=== PATIENT | female | born 1965 | race Caucasian/White ===

== ENCOUNTER → 2018-07-14 | Outpatient (CLI) | payer BC ==
--- NOTE | 2018-07-14 17:20 | BD ---
EXAMINATION TYPE: Axial Bone Density DATE OF EXAM: 07/14/2018 COMPARISON: 12/16/2015 CLINICAL HISTORY: 53 year-old female known osteopenia Height: 59.5 IN Weight: 172 LBS FRAX RISK QUESTIONS: Secondary Osteoporosis: 3. Menopause before 45: TOTAL HYST AGE 40 RISK FACTORS HISTORY OF: Active: YES Diet low in dairy products/other sources of calcium: YES Postmenopausal woman: AGE 40 Take estrogen and/or progesterone medications: NOT NOW How long: ESTROGEN AGE 41-45 MEDICATIONS: Additional Medications: VIT D, 50+ DAILY VITAMIN, VIT B12, OMEPRAZOLE, EXAM MEASUREMENTS: Bone mineral densitometry was performed using the [employer] System. Bone mineral density as measured about the Lumbar spine is: ----- L1-L4(G/cm2): 1.104 T Score Values are as follows: ----- L2: 0.0 ----- L3: -0.2 ----- L4: -1.7 ----- L1-L4: -0.6 Bone mineral density has: Decreased -0.8% since study of: 12/16/2015 Bone mineral density about the R hip (g/cm2): 0.867 Bone mineral density about the L hip (g/cm2): 0.841 T Score values are as follows: -----R Neck: -1.2 -----L Neck: -1.4 -----R Total: -0.6 -----L Total: -0.7 Bone mineral density has: Decreased -2.4% since study of: 12/16/2015 IMPRESSION: Osteopenia (T Score between -2.5 and -1). There is slightly increased risk of fracture and the patient may be considered for treatment. Re-Screen 2-5 years. NOTE: T-SCORE=SD OF THE YOUNG ADULT MEAN.
--- NOTE | 2018-07-16 11:40 | MM ---
Reason for exam: screening (asymptomatic). Last mammogram was performed 2 years and 7 months ago. History: Patient is postmenopausal and had first child at age 32. Took estrogen for 4 years 7 months beginning at age 40. Physical Findings: A clinical breast exam by your physician is recommended on an annual basis and results should be correlated with mammographic findings. MG Screening Mammo w CAD Bilateral CC and MLO view(s) were taken. Prior study comparison: December 16, 2015, bilateral MG screening mammo w CAD. February 18, 2014, bilateral MG screening mammo w CAD. The breast tissue is heterogeneously dense. This may lower the sensitivity of mammography. No significant changes when compared with prior studies. ASSESSMENT: Negative, BI-RAD 1 RECOMMENDATION: Routine screening mammogram of both breasts in 1 year.
== END ==
LOC: RADMAMWWP 08:51
PROVIDERS: ATTEND Obstetrics & Gynecology
DX: Z12.31 Encounter for screening mammogram for malignant neoplasm of breast (principal); M85.9 Disorder of bone density and structure, unspecified; Z13.820 Encounter for screening for osteoporosis
CPT/HCPCS: 77067; 77080

== ENCOUNTER → 2020-08-16 | Outpatient (CLI) | payer BC ==
[2020-08-16 12:15] LABS: HCT 41.1 % (34.0-46.0); MCH 31.5 pg (25.0-35.0); MCHC 34.1 g/dL (31.0-37.0); MCV 92.3 fL (80.0-100.0); Mean Platelet Volume 8.5; Platelet Count 205 k/uL (150-450); RBC 4.46 m/uL (3.80-5.40); RDW 12.9 % (11.5-15.5); WBC 9.3 k/uL (3.8-10.6)
[2020-08-16 12:39] LABS: ALT 20 U/L (4-34); AST 35 U/L (14-36); African American GFR (CKD) >90 (>60 ml/min/1.73 sqM); Albumin 4.4 g/dL (3.5-5.0); Alkaline Phosphatase 115 U/L (38-126); Anion Gap 4 mmol/L; Blood Urea Nitrogen 17 mg/dL (7-17); Calcium 9.5 mg/dL (8.4-10.2); Carbon Dioxide 31 mmol/L (22-30); Chloride 108 mmol/L (98-107); Glucose 94 mg/dL (74-99); Non-African American GFR(CKD) >90 (>60 ml/min/1.73 sqM); Potassium 4.4 mmol/L (3.5-5.1); Sodium 143 mmol/L (137-145); Total Bilirubin 0.4 mg/dL (0.2-1.3); Total Protein 6.6 g/dL (6.3-8.2)
[2020-08-16 12:43] LABS: INR 0.9 (<1.2); Prothrombin Time 10.2 sec (9.0-12.0)
== END | disposition home or self-care (01) ==
LOC: LABPAT 11:04
PROVIDERS: ATTEND Orthopaedic Surgery
DX: Z01.812 Encounter for preprocedural laboratory examination (principal)
CPT/HCPCS: 80053; 85027; 85610; 87070

== ENCOUNTER 2020-08-23 09:18 | Observation (INO) | payer BC ==
[2020-08-22 08:37] VITALS: BMI 32.1
--- NOTE | 2020-08-22 09:43 | HP ---
HISTORY AND PHYSICAL CHIEF COMPLAINT: Left knee pain. 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 She is having pain with weightbearing activities and at night. She has tried medications in addition to injections with only partial temporary relief. She notes her pain significantly limits her. PAST MEDICAL HISTORY: Significant for reflux disease and arthritis. PAST SURGICAL HISTORY: Significant for right knee arthroscopy and left ear surgery. CURRENT ALLERGIES: Omeprazole. ALLERGIES: CEFACLOR. FAMILY HISTORY: Significant for cancer. SOCIAL HISTORY: Negative for current tobacco or alcohol use. REVIEW OF SYSTEMS: Sixteen-point review of systems otherwise reviewed and is noncontributory. PHYSICAL EXAMINATION: On examination, the patient is approximately 5 feet tall, 168 pounds of endomorphic habitus. HEENT exam is nonfocal. Neck is supple. She has painless passive motion of her left hip. Straight leg raise is negative. Active motion left knee is -10 to 115 degrees of flexion. She has a moderate effusion. She is tender about the medial and lateral joint line. Collaterals are stable, Arsh is negative, Javon's is equivocal. Her distal neurovascular exam appears intact in the left lower extremity. Weightbearing notch, lateral Merchant views of the left knee obtained in the office show severe tricompartmental osteoarthrosis with [id number] changes and subchondral sclerosis. IMPRESSION: Left knee severe [id number]. RECOMMENDATIONS: I talked to the patient at length regarding her condition and treatment options. At this point, she is quite limited because of pain secondary to her osteoarthrosis despite conservative measures. After thorough discussion, she opts to proceed with surgery. We will plan to proceed with left total knee arthroplasty. Risks and benefits were discussed at length in layman's terms. We will institute DVT prophylaxis postoperatively. MMODL / IJN: [id number] /
[~2020-08-23 09:18] MED LIST: ACETAMINOPHEN TAB 500 MG TAB PO PRN; CLINDAMYCIN 900 MG in DEXTROSE 5% IN WATER 50 ML IVPB PRN; DEXAMETHASONE SOD PHOSPHATE 4 MG/ML 1 ML VIAL IV ONE; LIDOCAINE 1% (10MG/ML) FOR IV START INTRADERMA PRN; MELOXICAM 7.5 MG TAB PO PRN; MIDAZOLAM 2 MG/2 ML VIAL IV PRN; TRANEXAMIC ACID 1,000 MG in SODIUM CHLORIDE 0.9% 100 ML IVPB PRN
[2020-08-23] MEDS: LACTATED RINGERS 1,000 ML IV SCH (10:03)
[2020-08-23] MEDS: ONDANSETRON 4 MG/2 ML VIAL IVP ONE ×2 (10:09→14:26)
[2020-08-23] MEDS ORDERED: TRANEXAMIC ACID 1,000 MG/10 ML VIAL ONE (11:31)
[2020-08-23] MEDS ORDERED: SODIUM CHLORIDE 0.9% 100 ML BAG ONE (11:31)
[2020-08-23] MEDS ORDERED: ROPIVACAINE 5 MG/ML 30 ML VIAL ONE (11:31)
[2020-08-23] MEDS ORDERED: MIDAZOLAM 2 MG/2 ML VIAL ONE (11:31)
[2020-08-23] MEDS ORDERED: fentaNYL (PF) 50 MCG/ML 2 ML AMP ONE (11:31)
[2020-08-23] MEDS ORDERED: ROPIVACAINE 0.2%-NS ON-Q PUMP 1,090 MG, EMPTY PAIN BALL 1 EACH MISCELLANE PRN (12:55)
[2020-08-23] MEDS ORDERED: NALOXONE 0.4 MG/ML 1 ML VIAL IV PRN (13:08)
--- NOTE | 2020-08-23 13:10 | P.ANPRN ---
Procedure Note - Anesthesia - Nerve Block Performed Left Adductor Canal Time Out Performed: Yes (:19) Date of Procedure: 08/23/20 Procedure Start Time: Procedure Stop Time: : Location of Patient: PreOp Indication: Acute Post-Operative Pain, Requested by Surgeon (Dr Reinoso) Sedation Type: Sedate with meaningful contact maintained Preparation: Sterile Prep, Sterile Dressing Position: Supine Catheter: Indwelling Needle Types: Pajunk Needle Gauge: 21 Ultrasound used to visualize needle placement: Yes Ultrasound used to observe medication spread: Yes Injectate: 0.5% Ropivacaine (see comment for volume) (15cc) Blood Aspirated: No Pain Paresthesia on Injection Noted: No Resistance on Injection: Normal Image Stored and Saved: Yes Events: Uneventful and Well Tolerated
--- NOTE | 2020-08-23 13:12 | P.ANPRN ---
Procedure Note - Anesthesia - Nerve Block Performed Left iPack Time Out Performed: Yes Date of Procedure: 08/23/20 Procedure Start Time: 10:34 Procedure Stop Time: 10:47 Location of Patient: PreOp Indication: Acute Post-Operative Pain, Requested by Surgeon (Dr Reinoso) Sedation Type: Sedate with meaningful contact maintained Preparation: Sterile Prep Position: Supine Catheter: None Needle Types: Pajunk Needle Gauge: 21 Ultrasound used to visualize needle placement: Yes Ultrasound used to observe medication spread: Yes Injectate: 0.5% Ropivacaine (see comment for volume) (15cc) Blood Aspirated: No Pain Paresthesia on Injection Noted: No Resistance on Injection: Normal Image Stored and Saved: Yes Events: Uneventful and Well Tolerated
[2020-08-23] MEDS ORDERED: PANTOPRAZOLE 40 MG TABLET PO PRN (13:21)
[2020-08-23] MEDS ORDERED: ALBUTEROL HFA INHALER INHALATION PRN ×2 (13:21→13:26)
[2020-08-23] MEDS ORDERED: ALPRAZolam 0.25 MG TAB PO PRN (13:21)
[2020-08-23] MEDS ORDERED: ALBUTEROL NEBULIZED 2.5 MG/3 ML INHALATION PRN (13:26)
--- NOTE | 2020-08-23 13:35 | P.OP ---
Date of Procedure: 08/23/20 Preoperative Diagnosis: Left knee severe tricompartmental osteoarthrosis Postoperative Diagnosis: Same Procedure(s) Performed: Left total knee arthroplastycementedcruciate retaining Implants: Depuy Attune size 5 narrows cemented femoral component, size 4 cemented tibial component, 9 mm articular surface, 35 mm cemented patellar component. This is a cruciate retaining implant. Anesthesia: regional, spinal Surgeon: Tolu Reinoso Information Technology Advisor #1: Saji Glass Estimated Blood Loss (ml): 50 Pathology: other (Bone fragments) Condition: stable Disposition: PACU Indications for Procedure: The patient's a 55-year-old female presents was severe left knee pain secondary to osteoarthrosis despite conservative measures. A discussion of the risks and benefits of operative intervention versus continued conservative measures was made with the patient. She opted to proceed with surgery. Operative risks to include infection, neurovascular injury, development of blood clots, possible component loosening, possible component failure need for subsequent procedures was discussed. Informed consent was obtained. Operative Findings: As below Description of Procedure: The patient was brought to the operating room, and after induction of spinal anesthesia the left lower extremity was prepped and draped in a normal fashion. The tourniquet was inflated to 270 mmHg. A longitudinal incision extending 3 finger breaths above the superior pole of the patella extending to the medial aspect the tibial tubercle was then made. The skin and subcutaneous tissues were divided sharply. Electrocautery was used for hemostasis. A medial parapatellar arthrotomy was then performed. The medial soft tissues to include the superficial and deep portions of the medial collateral ligament as well as the medial hamstring tendons were elevated subperiosteally. The proximal medial tibia osteophytes were carefully removed. The patella was everted. The knee was flexed. A portion of the retropatellar fat pad was excised sharply. The anterior cruciate ligament was sacrificed. A starting hole was made in the distal femur 1 cm anterior to the posterior cruciate origin. An intramedullary femoral guide was gently inserted planning on 5 valgus distal cut with 9 mm distal resection. The cutting block was pinned in place. The distal cut was then made. The posterior referencing sizing guide was utilized. 3 of external rotation was built into the system and verified off the trans- epicondylar axis and the posterior condyles. I felt size 5 narrow was most appropriate. The cutting block was pinned in place. The anterior, posterior, and chamfer cuts were then made. The bone fragments were removed. A sulcus cut was then made with the appropriate guide. The trial size 5 narrow femoral component was then placed and was fully seated. There was good anterior to posterior and medial to lateral fit. The distal peg holes were then drilled. The trial component was then removed. Attention was then paid towards preparing the proximal tibia. An extra medullary guide was utilized in line with the tibial shaft and second metatarsal distally. A 7 posterior slope was planned. I planned on 2 mm resection from the medial compartment. The cutting block was pinned in place. The proximal tibial cut was then made. The bone was removed in one fragment. The remnants of the medial and lateral menisci were excised the capsule junction with electrocautery. The tibia sized most appropriately at size 4. The posterior osteophytes off the distal femur were carefully removed with a curved osteotome. The trial tibial and femoral components were placed along with a 9 millimeters articular surface. I was able to obtain full flexion and extension with good stability with varus and valgus stress. After several flexion and extension cycles, the tibial rotation was marked with electrocautery in line with the medial one third of the tibial tubercle. Attention was then paid towards preparing the patella. A patella reamer was utilized taking this down to 14 mm of bone stock. A good flush cut was made. The patella sized most appropriately at 35 millimeters. The peg holes were then drilled. The trial component was placed. The knee was taken through a range of motion. I had good patellofemoral tracking with no hands technique. The trial components were then removed. The tibia was prepared in the appropriate rotation with appropriate drill and keel punch. The flexion and extension gaps were checked and felt to be symmetric. The bony surfaces were prepared with pulsatile lavage and dried. The deep tibial component was then cemented in place and was fully seated. Excess cement was removed. The femoral component was cemented in place and was fully seated. Again excess cement was removed. The trial 9 millimeters surface was then inserted in the knee was put in full extension. The patella component was cemented in place. After the cement had sufficiently hardened, the knee was again taken through a range of motion. Again there was good stability in flexion and extension with varus and valgus stress. The trial articular surface was then removed. The final articular surface was placed and was impacted. Care was taken to avoid any soft tissue interposition. Pulsatile lavage was again utilized. The tourniquet was deflated with approximately 60 minutes total tourniquet time. There was minimal drainage therefore a deep drain was not placed. The medial parapatellar arthrotomy was then closed with #2 Ethibond suture. The subcutaneous tissues were reapproximated interrupted 2-0 Vicryl sutures. The skin was reapproximated with 3-0 subarticular strata fix suture. Skin tape and adhesive was applied. A sterile dressing was applied. The patient was then awoken from sedation and transferred to recovery room in good condition. Blood loss was estimated at 50 milliliters. No complications were incurred. Sponge and needle counts were correct at the end the case. Saji PORTILLO assisted during the major components this case to include exposure, bone resection, and implantation.
[2020-08-23 13:50] VITALS: RESP 16
[2020-08-23] MEDS: HYDROmorphone 0.5 MG/0.5 ML SYRINGE IVP PRN ×2 (14:20→20:00)
--- NOTE | 2020-08-23 14:33 | XR ---
EXAMINATION TYPE: XR knee limited LT DATE OF EXAM: 08/23/2020 COMPARISON: NONE TECHNIQUE: Two views submitted HISTORY: Post op FINDINGS: There is a prosthetic knee in near anatomic alignment. There is soft tissue edema and emphysema. IMPRESSION: 1. Postoperative change. Appears in near-anatomic alignment
[2020-08-23] MEDS: HYDROcodone/APAP 5-325MG 1 EACH TAB PO PRN (15:11)
[2020-08-23] MEDS ORDERED: ONDANSETRON 4 MG/2 ML VIAL IVP PRN (17:27)
[2020-08-23] MEDS: CLINDAMYCIN 900 MG in DEXTROSE 5% IN WATER 50 ML IVPB SCH ×2 (17:36)
--- NOTE | 2020-08-23 21:15 | P.CONS ---
History of Present Illness - Reason for Consult Consult date: 08/23/20 Medical management Requesting physician: Tolu Reinoso - Chief Complaint Post left total knee arthroplasty, had a hernia, severe arthritis - History of Present Illness HISTORY OF PRESENT ILLNESS 55-year-old female one of Dr. ro's patient with past medical history of femoral hernia along with arthritis who had multiple orthopedic procedures such as arthroscopy of both knees in the past also known to have history of severe GERD. Patient developed to have severe advanced arthritis with severe [id number]-zvns of the left knee for the last few years with failure to conservative management specially after riding arthroscopy continue having increased pain and severe limitation. Patient was seen Dr. Reinoso was scheduled for elective total knee arthroplasty. Surgery was done today successfully with no major complication patient was admitted to the floor afterward she still having the pain management system, med reconsultation was started patient will have PTOT GI and DVT prophylaxis protocol. REVIEW OF SYSTEMS Constitutional: No fever, no chills, no night sweats. No weight change. No weakness, fatigue or lethargy. No daytime sleepiness. EENT: No headache. No blurred vision or double vision, no loss of vision. No loss of Hearing, no ringing in the ears, no dizziness. No nasal drainage or congestion. No epistaxis. No sore throat. Lungs: No shortness of breath, cough, no sputum production. No wheezing. Cardiovascular: No chest pain, no lower extremity edema. No palpitations. No paroxysmal nocturnal dyspnea. No orthopnea. No lightheadedness or dizziness. No syncopal episodes. Abdominal: No abdominal pain. No nausea, vomiting. No diarrhea. No constipation. No bloody or tarry stools.. No loss of appetite. Genitourinary: No dysuria, increased frequency, urgency. No urinary retention. Musculoskeletal: No myalgias. No muscle weakness, no gait dysfunction, no frequent falls. No back pain. No neck pain. Integumentary: No wounds, no lesions. No rash or pruritus. No unusual bruising. No change in hair or nails. Slight discomfort and pain in the left knee. Neurologic: No aphasia. No facial droop. No change in mentation. No head injury. No headache. No paralysis. No paresthesia. Psychiatric: No depression. No anxiety. No mood swings. Endocrine: No abnormal blood sugars. No weight change. No excessive sweating or thirst. No cold intolerance. SOCIAL HISTORY She does not smoke, she drink alcohol socially, does not use any marijuana no CP AP or nebulizer management, does not walk with a walker or cane at this point. Patient is and lives with her . FAMILY HISTORY Her father dying his AV from CHF and end-stage renal disease. Mother in her 50s from advanced COPD, patient had 1 brother who is living and well one daughter with no major medical problem. PHYSICAL EXAMINATION Gen: This is a 55-year-old does not look in any respiratory distress. HEENT: Head is atraumatic, normocephalic. Pupils equal, round. Sclerae is anicteric. NECK: Supple. No JVD. No lymphadenopathy. No thyromegaly. LUNGS: Clear to auscultation. No wheezes or rhonchi. No intercostal retractions. HEART: Regular rate and rhythm. No murmur. ABDOMEN: Soft. Bowel sounds are present. No masses. No tenderness. EXTREMITIES: No pedal edema. No calf tenderness. Incision of her left knee looks fine with no hematoma or bleeding no Shruthi with slight tenderness pulses palpable. NEUROLOGICAL: Patient is awake, alert and oriented x3. Cranial nerves 2 through 12 are grossly intact. ASSESSMENT AND PLAN 1 post left total knee arthroplasty: Patient is doing well so far, patient is well controlled, patient is stable hemodynamically, resume home meds, will continue GI, DVT and pulmonary protocol. 2 severe GERD/hiatal hernia: Patient has been on omeprazole 20 mg a day which will be resumed. 3 reactive airway/asthma: Has been doing very well with rescue inhaler with Ventolin HFA on demand. 4 mild anxiety attacks: Has been on Xanax 0.25 mg twice a day as needed. 5 severe arthritis: Patient had multi surgery on both knees right side is doing slightly but better for now. Continue anti-inflammatory agent on as-needed basis. 6 DVT prophylaxis: Patient was started on Xarelto 10 mg daily as for been discharged home will be on aspirin. 7 GI prophylaxis: Continue patient on Protonix. 8 pain and pain management: Patient still on pain management system at this point still on hydrocodone on an as-needed basis. With status: Full code. Dr. Reinoso thank you very much for the consult if I can be any further help to please let me know. Past Medical History Past Medical History: GERD/Reflux Additional Past Medical History / Comment(s): hiatal hernia (no official diagnosis), positive COVID 04/2020 History of Any Multi-Drug Resistant Organisms: None Reported Past Surgical History: Hysterectomy, Orthopedic Surgery, Tonsillectomy Additional Past Surgical History / Comment(s): arthroscopy knee surgeries(2 on right, one on left knee), left mastoidectomy x 2 Past Anesthesia/Blood Transfusion Reactions: No Reported Reaction Past Psychological History: Anxiety Smoking Status: Never smoker Past Alcohol Use History: Occasional Past Drug Use History: None Reported - Past Family History Mother Family Medical History: Cancer Additional Family Medical History / Comment(s): lung Medications and Allergies Home Medications Medication Instructions Recorded Confirmed Type ALPRAZolam [Xanax] 0.25 mg PO DAILY PRN 08/22/20 08/23/20 History Acetaminophen [Tylenol Arthritis] 650 mg PO DIRECTED PRN 08/22/20 08/23/20 History Albuterol Inhaler [Ventolin Hfa 1 puff INHALATION DIRECTED PRN 08/22/20 08/22/20 History Inhaler] Ibuprofen [Motrin Ib] 200 - 600 mg PO Q8H PRN 08/22/20 08/22/20 History Multivitamins, Thera [Multivitamin 1 tab PO DAILY 08/22/20 08/22/20 History (formulary)] Omeprazole 20 mg PO DAILY PRN 08/22/20 08/22/20 History Allergies Allergy/AdvReac Type Severity Reaction Status Date / Time cefaclor [From [facility]] Allergy Rash/Hives Verified 08/23/20 09:46 Physical Exam Vitals: Vital Signs Temp Pulse Pulse Resp BP Pulse Ox 08/23/20 14:30 69 16 130/76 100 08/23/20 14:15 66 16 132/81 95 08/23/20 14:02 57 L 16 124/74 96 08/23/20 13:45 64 16 122/76 96 08/23/20 13:32 97.7 F 70 18 121/78 96 08/23/20 10:35 66 16 125/77 100 08/23/20 10:20 60 16 129/74 100 08/23/20 09:55 97.4 F L 66 17 127/72 97 Intake and Output 08/23/20 08/23/20 08/23/20 06:59 14:59 22:59 Intake Total 356 Output Total 50 Balance 306 Intake: IV 356 Output: Estimated Blood Loss 50 Other: Weight 73.482 kg
[2020-08-24] MEDS: HYDROcodone/APAP 5-325MG 1 EACH TAB PO PRN ×3 (00:10→13:04)
[2020-08-24] MEDS: CLINDAMYCIN 900 MG in DEXTROSE 5% IN WATER 50 ML IVPB SCH ×2 (00:11)
[2020-08-24] MEDS: LACTATED RINGERS 1,000 ML IV SCH (05:47)
[2020-08-24 07:42] VITALS: BP 123/75; PULSE 102; TEMP 98
[2020-08-24] MEDS ORDERED: MULTIVITAMINS, THERA 1 EACH TAB PO SCH (09:00)
[2020-08-24] MEDS ORDERED: RIVAROXABAN 10 MG TAB PO SCH (09:00)
--- NOTE | 2020-08-24 09:54 | P.PN ---
Subjective Progress Note Date: 08/24/20 Principal diagnosis: Status post left total knee arthroplasty Patient evaluated at bedside, she is resting in her hospital chair. She is rather comfortable at this time. She indicated with physical therapy, she did do the stairs were no difficulty. She has no headaches, lightheadedness, chest pain, shortness of breath, nausea vomiting, fever or chills. Objective - Vital Signs Vital signs: Vital Signs Temp 98 F 08/24/20 07:42 Pulse 102 H 08/24/20 07:42 Resp 16 08/24/20 07:42 BP 123/75 08/24/20 07:42 Pulse Ox 96 08/24/20 07:42 Intake & Output 08/23/20 08/24/20 08/24/20 18:59 06:59 18:59 Intake Total 356 Output Total 50 Balance 306 Weight 73.482 kg Intake: IV 356 Output: Estimated Blood Loss 50 Other: # Voids 1 2 - Exam Left lower extremity: Incision is clean, dry, and intact. The exofin fusion tape is in good condition. There is minimal soft tissue swelling and ecchymosis surrounding the medial and lateral aspects of the incision. Calf is soft, no tenderness with palpation. Plantar flexion, dorsiflexion, EHL, FHL are intact. Sensory exam to light touch throughout the extremity is intact, dorsal pedis pulses 2+. Assessment and Plan Assessment: Postoperative day #1 status post left total knee arthroplasty Plan: Pain control, plan for discharge home on [place], [id number] Tylenol use was discussed GI and DVT prophylaxis, Eliquis 2.5 mg twice a day for 2 weeks Wound care instructions discussed Icing and elevating techniques discussed Home physical therapy and nursing after discharge Medical recommendations Plan for discharge home today Time with Patient: Less than 30
--- NOTE | 2020-08-24 09:59 | P.DS ---
Providers Date of admission: 08/23/20 22:34 Expected date of discharge: 08/24/20 Attending physician: Tolu Reinoso Consults: 08/23/20 13:13 Consult Physician Routine Consulting Provider: Yasir Lima Consult Reason/Comments: Medical Management; s/p left total knee arthroplasty Do you want consulting provider notified?: Yes Primary care physician: Yasir Lima MD Hospital Course: Date of admission: 08/23/2020 Date of discharge: 08/24/2020 Admission diagnosis: Status post left total knee arthroplasty Discharge diagnosis: Same Attending physician: Dr. Reinoso Surgical procedures: Left total knee arthroplasty Brief history: Patient is a 55-year-old female with a history of progressive primary left knee osteoarthritis. At this point patient has failed conservative treatment measures and has opted to proceed with a elective left total knee arthroplasty. Hospital course: Details of patient's surgery can be found in operative report. Patient tolerated the procedure well and was subsequently transported to orthopedic floor. Patient's orthopeidc and medical care was provided daily. Patient had daily laboratory tests performed for evaluation of overall blood c ounts. Patient had daily physical therapy to include strengthening range of motion as well as education with walker ambulation. Patient was treated with Xarelto for their postoperative DVT prophylaxis during their inpatient stay. Patient was noted to have a relatively uneventful postoperative course. Patient reported satisfactory pain control with oral pain medications by postoperative day 0. Patient showed satisfactory progress with physical therapy. Patient moved steadily through the program and had no difficulty meeting the goals by postoperative day 1. Given patient's otherwise satisfactory course and having met physical therapy goals, plan is to discharge patient home on postoperative day 1. Discharge condition/disposition: Patient will be discharged home in stable condition. Discharge medications: Instructions are given on resumption of patient's normal daily medications per primary care recommendation, in addition patient will be prescribed Norwood 5 mg/325 mg, Colace 100 mg, Eliquis 2.5 mg. Discharge instructions: 1. Wound care and infection precautions, keep incision dry and covered while showering, no lotions, creams, moisturizers. No soaking, tubs, pools, hottubs. Do not scrub over the incision. 2. Weight-bear as tolerated with walker / cane until follow-up. 3. Ice and elevate when necessary. Do not exceed 20 minutes per hour with ice pack. 4. Utilize compression sleeve until seen at first follow up appointment. 5. Visiting nursing care. 6. Home physical therapy including home CPM. 7. Pain meds and anticoagulants per prescription. 8. Pain medication has potential to cause constipation. Increase oral fluid and fiber intake. Contact primary care provider if you have not had a bowel movement within 48 hours after discharge 9. No anti-inflammatory medication until discussed at first post operative visit, this including Motrin, Aleve, Mobic, Diclofenac. 10. Follow up in office at 2 weeks postop with Malik Vieira PA-C/Saji Taylor 11. Follow up with your primary care doctor 7-10 days after discharge. 12. Contact [facility] with any questions, . Procedures: Left total knee arthroplasty Patient Condition at Discharge: Good Plan - Discharge Summary Discharge Rx Participant: No New Discharge Prescriptions: New Docusate [Colace] 100 mg PO DAILY #30 capsule Apixaban [Eliquis] 2.5 mg PO BID #60 tab HYDROcodone/APAP 5-325MG [Norwood 5-325] 1 - 2 tab PO Q6HR PRN #42 tab PRN Reason: Pain No Action Ibuprofen [Motrin Ib] 200 - 600 mg PO Q8H PRN PRN Reason: Pain Acetaminophen [Tylenol Arthritis] 650 mg PO DIRECTED PRN PRN Reason: Pain Multivitamins, Thera [Multivitamin (formulary)] 1 tab PO DAILY Albuterol Inhaler [Ventolin Hfa Inhaler] 1 puff INHALATION DIRECTED PRN PRN Reason: sob Omeprazole 20 mg PO DAILY PRN PRN Reason: reflux ALPRAZolam [Xanax] 0.25 mg PO DAILY PRN PRN Reason: Anxiety Discharge Medication List ALPRAZolam [Xanax] 0.25 mg PO DAILY PRN 08/22/20 [History] Acetaminophen [Tylenol Arthritis] 650 mg PO DIRECTED PRN 08/22/20 [History] Albuterol Inhaler [Ventolin Hfa Inhaler] 1 puff INHALATION DIRECTED PRN 08/22/20 [History] Ibuprofen [Motrin Ib] 200 - 600 mg PO Q8H PRN 08/22/20 [History] Multivitamins, Thera [Multivitamin (formulary)] 1 tab PO DAILY 08/22/20 [History] Omeprazole 20 mg PO DAILY PRN 08/22/20 [History] Apixaban [Eliquis] 2.5 mg PO BID #60 tab 08/24/20 [Rx] Docusate [Colace] 100 mg PO DAILY #30 capsule 08/24/20 [Rx] HYDROcodone/APAP 5-325MG [Norwood 5-325] 1 - 2 tab PO Q6HR PRN #42 tab 08/24/20 [Rx] Follow up Appointment(s)/Referral(s): Darío Vieira PAC [PHYSICIAN MEDICAL ESTHETICIAN] - 2 Weeks Activity/Diet/Wound Care/Special Instructions: Orthopedic Discharge Instructions: 1. Wound care and infection precautions, keep incision dry and covered while showering, no lotions, creams, moisturizers. No soaking, pools, hot tubs. Do not scrub over incision. 2. Weight-bear as tolerated with walker / cane until follow-up. 3. Ice and elevate when necessary. Do not exceed 20 minutes per hour with ice pack. 4. Utilize compression sleeve until seen at first follow up appointment. 5. Pain meds and anticoagulants per prescription. 6. Pain medication has potential to cause constipation. Increase oral fluid and fiber intake. Contact primary care provider if you have not had a bowel movement within 48 hours after discharge. 7. No anti-inflammatory medication until discussed at first post operative visit, this including Motrin, Aleve, Mobic, Diclofenac. 8. Follow up in office at 2 weeks postop with Malik Vieira PA-C/Saji Glass PA-C 9. Follow up with your primary care doctor 7-10 days after discharge. 10. Contact [facility] with any questions, . Discharge Disposition: HOME WITH HOME HEALTH SERVICES
[2020-08-24 11:56] LABS: Basophils # (A) 0.03 X 10*3/uL (0.00-0.10); Basophils % (A) 0.2 %; Eosinophils # (A) 0.02 X 10*3/uL (0.04-0.35); Eosinophils % (A) 0.1 %; HCT 37.7 % (37.2-46.3); HGB 12.4 g/dL (12.0-15.0); Lymphocytes # (A) 1.61 X 10*3/uL (0.90-5.00); Lymphocytes % (A) 9.2 %; MCH 30.2 pg (27.0-32.0); MCHC 32.9 g/dL (32.0-37.0); Mean Platelet Volume 11.6 fL (9.5-12.2); Monocytes # (A) 1.02 X 10*3/uL (0.20-1.00); Monocytes % (A) 5.8 %; Neutrophils # (A) 14.72 X 10*3/uL (1.80-7.70); Neutrophils % (A) 84.3 %; Platelet Count 256 X 10*3/uL (140-440); RDW 12.8 % (11.5-14.5); WBC 17.47 X 10*3/uL (4.50-10.00)
--- NOTE | 2020-08-24 13:05 | P.PN ---
Subjective Progress Note Date: 08/24/20 HISTORY OF PRESENT ILLNESS 55-year-old female one of Dr. ro's patient with past medical history of femoral hernia along with arthritis who had multiple orthopedic procedures such as arthroscopy of both knees in the past also known to have history of severe GERD. Patient developed to have severe advanced arthritis with severe [id number] of the left knee for the last few years with failure to conservative management specially after riding arthroscopy continue having inc reased pain and severe limitation. Patient was seen Dr. Reinoso was scheduled for elective total knee arthroplasty. Surgery was done today successfully with no major complication patient was admitted to the floor afterward she still having the pain management system, med reconsultation was started patient will have PTOT GI and DVT prophylaxis protocol. 08/24: Patient has Q-pump in place for pain control. She has worked with physical therapy today. She complains of tightness in the thigh and baclofen will be ordered for muscle spasms. Patient has been afebrile, heart rate 102, blood pressure 123/75, pulse ox 96% on room air. Patient is scheduled for discharge home today. Medication reconciliation reviewed. Patient to follow up with Dr. Ro. REVIEW OF SYSTEMS Constitutional: No fever, no chills, no night sweats. No weight change. No weakness, fatigue or lethargy. No daytime sleepiness. EENT: No headache. No blurred vision or double vision, no loss of vision. No loss of Hearing, no ringing in the ears, no dizziness. No nasal drainage or congestion. No epistaxis. No sore throat. Lungs: No shortness of breath, cough, no sputum production. No wheezing. Cardiovascular: No chest pain, no lower extremity edema. No palpitations. No paroxysmal nocturnal dyspnea. No orthopnea. No lightheadedness or dizziness. No syncopal episodes. Abdominal: No abdominal pain. No nausea, vomiting. No diarrhea. No constipation. No bloody or tarry stools.. No loss of appetite. Genitourinary: No dysuria, increased frequency, urgency. No urinary retention. Musculoskeletal: No myalgias. No muscle weakness, no gait dysfunction, no frequent falls. No back pain. No neck pain. Integumentary: No wounds, no lesions. No rash or pruritus. No unusual bru ising. No change in hair or nails. Slight discomfort and pain in the left knee. Neurologic: No aphasia. No facial droop. No change in mentation. No head injury. No headache. No paralysis. No paresthesia. Psychiatric: No depression. No anxiety. No mood swings. Endocrine: No abnormal blood sugars. No weight change. No excessive sweating or thirst. No cold intolerance. PHYSICAL EXAMINATION Gen: This is a 55-year-old does not look in any respiratory distress. HEENT: Head is atraumatic, normocephalic. Pupils equal, round. Sclerae is anicteric. NECK: Supple. No JVD. No lymphadenopathy. No thyromegaly. LUNGS: Clear to auscultation. No wheezes or rhonchi. No intercostal retractions. HEART: Regular rate and rhythm. No murmur. ABDOMEN: Soft. Bowel sounds are present. No masses. No tenderness. EXTREMITIES: No pedal edema. No calf tenderness. Incision of her left knee looks fine with no hematoma or bleeding no Shruthi with slight tenderness pulses palpable. NEUROLOGICAL: Patient is awake, alert and oriented x3. Cranial nerves 2 through 12 are grossly intact. ASSESSMENT AND PLAN 1 post left total knee arthroplasty due to osteoarthritis: Patient is doing well so far, patient is well controlled, patient is stable hemodynamically, resume home meds, will continue GI, DVT and pulmonary protocol. 2 severe GERD/hiatal hernia: Patient has been on omeprazole 20 mg a day which will be resumed. 3 reactive airway/mild intermittent asthma: Has been doing very well with rescue inhaler with Ventolin HFA on demand. 4 mild anxiety attacks: Has been on Xanax 0.25 mg twice a day as needed. 5 severe arthritis: Patient had multi surgery on both knees right side is doing slightly but better for now. Continue anti-inflammatory agent on as-needed basis. 6 DVT prophylaxis: Patient was started on Xarelto 10 mg daily as for been luz maria abdi home will be on aspirin. 7 GI prophylaxis: Continue patient on Protonix. 8 pain and pain management: Patient still on pain management system at this point still on hydrocodone on an as-needed basis. DISCHARGE PLAN Home with [facility] Impression and plan of care have been directed as dictated by the signing physician. Nina Truong nurse practitioner acting as scribe for signing physician. Objective - Vital Signs Vital signs: Vital Signs Temp 98.7 F 08/24/20 02:00 Pulse 97 08/24/20 02:00 Resp 16 08/24/20 02:00 BP 133/80 08/24/20 02:00 Pulse Ox 95 08/24/20 02:00 Intake & Output 08/23/20 08/24/20 08/24/20 18:59 06:59 18:59 Intake Total 356 Output Total 50 Balance 306 Weight 73.482 kg Intake: IV 356 Output: Estimated Blood Loss 50 Other: # Voids 1 2 - Labs CBC & Chem 7: 08/24/20 07:29
--- NOTE | 2020-08-24 13:51 | P.PN ---
Progress Note - Text Anesthesia POD 1. Patient is status post left TKR under spinal anesthesia with a left adductor canal catheter and I PAC placed for postoperative pain relief. With ropivacaine 0.2% running at 8 cc's per hour, the patient's VAS is (2, 3). Catheter site is clean dry and intact.
== END 2020-08-24 14:17 | disposition home health service (06) ==
LOC: OR 09:18 → 4SSUR 12:34 → OR 22:34
PROVIDERS: ADMIT Orthopaedic Surgery; ATTEND Orthopaedic Surgery
DX: M17.12 Unilateral primary osteoarthritis, left knee (principal); J45.20 Mild intermittent asthma, uncomplicated; K21.9 Gastro-esophageal reflux disease without esophagitis; K44.9 Diaphragmatic hernia without obstruction or gangrene; F41.9 Anxiety disorder, unspecified; Z20.822 Contact with and (suspected) exposure to COVID-19; Z79.899 Other long term (current) drug therapy; Z88.1 Allergy status to other antibiotic agents; Z91.011 Allergy to milk products; Z91.048 Other nonmedicinal substance allergy status; Z82.49 Family history of ischemic heart disease and other diseases of the circulatory system; Z80.1 Family history of malignant neoplasm of trachea, bronchus and lung; Z80.51 Family history of malignant neoplasm of kidney; Z80.8 Family history of malignant neoplasm of other organs or systems; Z82.5 Family history of asthma and other chronic lower respiratory diseases
CPT/HCPCS: 97110; 97161; 64999; 64448; 76942; 85025; 88300; 87635; 73560; 27447; G0378 ×2; C1713; C1776; J2250; J1100; J2405; J3010; J2795 ×2; J1170

== ENCOUNTER 2020-10-25 08:47 | Day surgery (SDC) | payer BC ==
--- NOTE | 2020-10-15 11:39 | HP ---
HISTORY AND PHYSICAL CHIEF COMPLAINT: Left knee stiffness. HISTORY OF PRESENT ILLNESS: Patient is a 55-year-old female who presents after undergoing left total knee arthroplasty on 08/23/2020 with persistent stiffness despite adequate rehabilitation. She otherwise had an uncomplicated postoperative course. PAST MEDICAL HISTORY: Significant for arthritis in addition to gastroesophageal reflux disease. PAST SURGICAL HISTORY: Significant for previous right knee arthroscopy in addition the left total knee arthroplasty, hysterectomy, and ear surgery. CURRENT MEDICATIONS: Omeprazole. She has Motrin and Tylenol. ALLERGIES: SHE IS ALLERGIES TO Cefaclor FAMILY HISTORY: Significant for cancer. SOCIAL HISTORY: Negative for current tobacco or alcohol use. REVIEW OF SYSTEMS: Sixteen-point review of systems otherwise reviewed and is noncontributory. PHYSICAL EXAMINATION: On examination, the patient is approximately 5 foot 11, 168 pounds of mesomorphic habitus. HEENT exam is nonfocal. Neck is supple. She has painless passive motion left hip. Straight leg raise is negative. Active motion left knee -10 to 80 degrees of flexion. She has no warmth or erythema. The incision is well healed. She is stable to varus and valgus stress. Homans are negative. Distal neurovascular exam appears intact in left lower extremity. IMPRESSION: 1. Status post left total knee arthroplasty. 2. Left knee arthrofibrosis. RECOMMENDATIONS: I talked to the patient at length regarding her conditions along with treatment options. At this point, she remains stiff and limited despite adequate rehabilitation. After thorough discussion, she opts to proceed with manipulation under anesthesia. She will start therapy directly after the procedure in addition to starting a Medrol Dosepak. We will likely perform that as an outpatient procedure utilizing IV sedation. Risks and benefits were discussed at length in layman's terms. MMODL / IJN: [id number] / YEHUDA
[2020-10-20 13:53] VITALS: BMI 30.9
[~2020-10-25 08:47] MED LIST changes: -ACETAMINOPHEN TAB 500 MG TAB PO PRN; -CLINDAMYCIN 900 MG in DEXTROSE 5% IN WATER 50 ML IVPB PRN; +LACTATED RINGERS 1,000 ML IV SCH; -MELOXICAM 7.5 MG TAB PO PRN; +ONDANSETRON 4 MG/2 ML VIAL IVP PRN; -TRANEXAMIC ACID 1,000 MG in SODIUM CHLORIDE 0.9% 100 ML IVPB PRN
[2020-10-25 09:16] VITALS: TEMP 97.8
[2020-10-25] MEDS ORDERED: PROPOFOL 10 MG/ML 20 ML VIAL IV ONE (09:48)
[2020-10-25] MEDS ORDERED: KETOROLAC 15 MG/ML 1 ML VIAL ONE (09:48)
[2020-10-25] MEDS ORDERED: fentaNYL (PF) 50 MCG/ML 2 ML AMP ONE (09:48)
[2020-10-25] MEDS ORDERED: MIDAZOLAM 2 MG/2 ML VIAL ONE (09:48)
[2020-10-25] MEDS: HYDROmorphone 0.5 MG/0.5 ML SYRINGE IVP PRN ×2 (10:10→10:15)
[2020-10-25] MEDS: MEPERIDINE 50 MG/ML SYRINGE IVP ONE ×2 (10:22→10:34)
[2020-10-25 11:15] VITALS: RESP 16
[2020-10-25 12:52] VITALS: BP 150/95; PULSE 76
--- NOTE | 2020-10-27 14:30 | P.OP ---
Date of Procedure: 10/25/20 Preoperative Diagnosis: Left knee arthrofibrosis status post total knee arthroplasty Postoperative Diagnosis: Same Procedure(s) Performed: Manipulation under anesthesia left knee Anesthesia: MAC Surgeon: Tolu Reinoso Estimated Blood Loss (ml): 0 Pathology: none sent Condition: stable Disposition: PACU Indications for Procedure: The patient's a 55-year-old female who previously underwent left total knee arthroplasty and despite adequate rehabilitation had persistent stiffness. A discussion of the risks and benefits of manipulation under anesthesia was made with patient. She opted to proceed. Specific risks of this procedure to include fracture, tendon rupture, recurrence of stiffness and need for subsequent procedures was discussed. Informed consent was obtained. Operative Findings: As below Description of Procedure: The patient was brought to recovery room and after induction of IV sedation I then gently manipulated her left knee. I first gently manipulated her knee to obtain 120 of flexion. Moderate adhesions were encountered. Gentle manipulation was then performed obtaining -5 full extension. Skin moderate adhesions were encountered. She tolerated the procedure well. She was monitored until fully awake. No complications were incurred. There was no blood loss.
== END 2020-10-25 14:06 | disposition home health service (06) ==
LOC: OR 08:47
PROVIDERS: ATTEND Orthopaedic Surgery
DX: M24.662 Ankylosis, left knee (principal); M19.90 Unspecified osteoarthritis, unspecified site; K21.9 Gastro-esophageal reflux disease without esophagitis; Z80.9 Family history of malignant neoplasm, unspecified; Z96.652 Presence of left artificial knee joint
CPT/HCPCS: 27570; J2250; J1100; J2175; J2405; J3010; J1885; J2704; J1170

== ENCOUNTER → 2022-06-13 | Outpatient (CLI) | payer BC ==
--- NOTE | 2022-06-13 11:43 | XR ---
EXAMINATION TYPE: XR lumbar spine 2 or 3V DATE OF EXAM: 06/13/2022 COMPARISON: 08/20/2013 HISTORY: Shooting pain down legs x1.5 years TECHNIQUE: 3 view lumbar spine FINDINGS: Spondylosis present T12-L1. T12 ribs may be rudimentary. Minimal disc change not excluded a t L2-3. Disc heights are otherwise preserved. Vertebral body heights are preserved. Alignment is norm al. IMPRESSION: 1. Minimal disc changes at L2-3 excluded. 2. No acute osseous abnormality.
== END | disposition home or self-care (01) ==
LOC: RADXRMAIN 10:27
PROVIDERS: ATTEND Internal Medicine Geriatric Medicine
DX: M51.36 Other intervertebral disc degeneration, lumbar region (principal)
CPT/HCPCS: 72100

== ENCOUNTER → 2022-06-13 | Outpatient (CLI) | payer BC ==
--- NOTE | 2022-06-13 15:27 | BD ---
EXAMINATION TYPE: Axial Bone Density DATE OF EXAM: 06/13/2022 CLINICAL HISTORY: 57 years old Female. ICD-10 CODE: M81.0 OSTOEPOROSIS Height: 4 ft 10 1/2 in Weight: 161 FRAX RISK QUESTIONS: Alcohol (3 or more units per day): no Family History (Parent hip fracture): no Glucocorticoids (More than 3mos): no (Ex: prednisone, prednisolone, methylprednisolone, dexamethasone, and hydrocortisone). History of Fracture in Adulthood: no Secondary Osteoporosis: 1. Type 1 Diabetes: no 2. Hyperthyroidism: no 3. Menopause before 45: yes 4. Malnutrition: no 5. Chronic liver disease: no Rheumatoid Arthritis: no Current Tobacco Use: no RISK FACTORS HISTORY OF: Surgery to Spine/Hip(right/left)/Wrist (right/left): no Family History of Osteoporosis: no Active: yes Diet low in dairy products/other sources of calcium: no Postmenopausal woman: yes Take estrogen and/or progesterone medications: none now Lost more than 2 inches in height since high school: no Frequent falls: yes Poor Health: good Hyperparathyroidism: no Adrenal Insufficiency: no MEDICATIONS: Additional Medications: Additional History: EXAM MEASUREMENTS: Bone mineral densitometry was performed using the [employer] System. Bone mineral density as measured about the Lumbar spine is: ----- L1-L4(G/cm2): 0.988 T Score Values are as follows: ----- L1: -1.1 ----- L2: -1.6 ----- L3: -1.9 ----- L4: -1.9 ----- L1-L4: -1.6 Z Score Values are as follows: ----- L1: -0.3 ----- L2: -0.8 ----- L3: -1.1 ----- L4: -1.1 ----- L1-L4: -0.8 Bone mineral density has: decreased -10.5 % since study of: 2019 Bone mineral density about the R hip (g/cm2): 0.867 Bone mineral density about the L hip (g/cm2): 0.809 T Score values are as follows: -----R Neck: -1.2 -----L Neck: -1.6 -----R Total: -1.0 -----L Total: -1.4 Z Score values are as follows: -----R Neck: -0.3 -----L Neck: -0.7 -----R Total: -0.4 -----L Total: -0.8 Bone mineral density has: decreased -7.2 % since study of: 2019 FRAX%s: The graph provided illustrates a 7.5 % chance for a major osteoporotic fx and a 0.7 % chance for the hips probability for fx in 10 years time. IMPRESSION: Osteopenia (T Score between -2.5 and -1). There is slightly increased risk of fracture and the patient may be considered for treatment. Re-Screen 2-5 years. NOTE: T-SCORE=SD OF THE YOUNG ADULT MEAN.
--- NOTE | 2022-06-14 10:18 | MM ---
Reason for Exam: Screening (asymptomatic). Last mammogram was performed 3 year(s) and 11 month(s) ago. Patient History: Menarche at age 12. First Full-Term at age 32. Late child-bearing (after 30). Left ovary removed at age 40. Right ovary removed at age 40. Hysterectomy at age 40. Postmenopausal. Estrogen for 4 years, 7 months, from age 40 until age 44. Risk Values: Cindi 5 year model risk: 1.8%. Prior Study Comparison: 02/18/2014 Bilateral Screening Mammogram, [facility]. 12/16/2015 Bilateral Screening Mammogram, [facility]. 07/14/2018 Bilateral Screening Mammogram, [facility]. Tissue Density: The breast tissue is extremely dense which could obscure a lesion on mammography. Findings: Analyzed By CAD. Pattern appears symmetrical and stable. No significant interval change is evident. Some benign calcifications within the bilateral breasts. No suspicious groups of microcalcifications, spiculated or lobular masses, architectural distortion or other secondary signs of malignancy are mammographically apparent. Overall Assessment: Benign, BI-RAD 2 Management: Screening Mammogram of both breasts in 1 year. A negative mammogram report should not preclude additional follow up of suspicious palpable abnormalities. Patient should continue monthly self breast exam. A clinical breast exam by your physician is recommended on an annual basis and results should be correlated with mammographic findings. Electronically signed and approved by: Abdelrahman Zaidi D.O. Radiologis
== END | disposition home or self-care (01) ==
LOC: RADMAMWWP 13:56
PROVIDERS: ATTEND Internal Medicine Geriatric Medicine
DX: Z12.31 Encounter for screening mammogram for malignant neoplasm of breast (principal); M81.0 Age-related osteoporosis without current pathological fracture; M85.89 Other specified disorders of bone density and structure, multiple sites; Z78.0 Asymptomatic menopausal state
CPT/HCPCS: 77063; 77067; 77080

== ENCOUNTER → 2023-07-03 | Outpatient (CLI) | payer BC ==
--- NOTE | 2023-07-03 08:52 | CT ---
EXAMINATION TYPE: CT sinus wo con CT DLP: 599 mGycm, Automated exposure control for dose reduction was used. DATE OF EXAM: 07/03/2023 8:42 AM COMPARISON: . CLINICAL INDICATION:Female, 58 years old with history of J32.0 CHRONIC MAXILLARY SINUSITIS; , Chronic sinusitis TECHNIQUE: Multiple thin axial images were obtained through the paranasal sinuses without the use of IV contrast. Additional coronal and sagittal reformatted images were submitted for evaluation. Contrast used: none Oral contrast used: none FINDINGS: Frontal sinuses: Normally developed and aerated. Suspected osteoma in the right frontal sinus measuri ng up to 7 mm. Frontal Recess: Clear Maxillary Sinuses: Normally developed with mucous retention cyst in the superior left maxillary sinus wall.. 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 Ethmoid sinuses: Normally developed and aerated. Ethmoidal notch: Unprotected bilateral anterior ethm oidal arteries. Sphenoid sinuses: Normally developed and aerated. There is sellar sphenoid sinus pneumatization witho ut evidence of dehiscence. No dehiscence of carotid canal. No evidence of optic nerve dehiscence wit hin the sphenoid sinus. No evidence of Onodi cells. Sphenoethmoidal recesses: Clear. Nasal septum: Within normal limits.. Nasal Turbinates: Within normal limits. Mastoid air cells & middle ears: Postsurgical changes to the left temporal bone. The majority of the left mastoid air cells are surgically absent. The right mastoid air cells are patent. The middle ears are grossly unremarkable. Modified Soft tissues & Brain: Partially seen without gross abnormality. Globes are intact. Other: Cribriform plate demonstrates symmetric Keros classification type 2 cribriform plate. No evidence of bony dehiscence of skull base. Lamina papyracea is intact without evidence of remote orbital fracture or orbital prolapse into the e thmoid sinus. IMPRESSION: 1. Minimal abnormal paranasal sinus disease with retention cyst in left maxillary sinus. 2. The ostiomeatal units, frontonasal and sphenoethmoidal recesses are clear. 3. 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 4. Postsurgical changes left temporal bone.
--- NOTE | 2023-07-03 22:22 | XR ---
EXAMINATION TYPE: XR chest 2V DATE OF EXAM: 07/03/2023 COMPARISON: 07/15/2013 INDICATION: Cough x2 weeks and sinus issues TECHNIQUE: Frontal and lateral views of the chest are obtained. FINDINGS: The heart size is normal. The pulmonary vasculature is somewhat prominent. The lungs are clear. IMPRESSION: 1. Clinical consideration for mild volume overload.
== END | disposition home or self-care (01) ==
LOC: RADCTMAIN 08:13
PROVIDERS: ATTEND Otolaryngology
DX: J32.0 Chronic maxillary sinusitis (principal)
CPT/HCPCS: 70486; 71046

== ENCOUNTER → 2024-10-07 | Outpatient (CLI) | payer BC ==
--- NOTE | 2024-10-07 15:44 | MM ---
Reason for Exam: Screening (asymptomatic). Last mammogram was performed 2 year(s) and 4 month(s) ago. Patient History: Menarche at age 12. First Full-Term at age 32. Late child-bearing (after 30). Left ovary removed at age 40. Right ovary removed at age 40. Hysterectomy at age 40. Postmenopausal. Estrogen for 4 years, 7 months, from age 40 until age 44. Risk Values: Cindi 5 year model risk: 2.0%. NCI Lifetime model risk: 10.0%. Prior Study Comparison: 12/16/2015 Bilateral Screening Mammogram, [facility]. 07/14/2018 Bilateral Screening Mammogram, [facility]. 06/13/2022 Bilateral MG 3D screening mammo w/cad, [facility]. Tissue Density: The breasts are heterogeneously dense, which may obscure small masses. Findings: Analyzed By CAD. Right breast: There is no suspicious group of microcalcifications or new suspicious mass. Left breast: There is no suspicious group of microcalcifications or new suspicious mass. Overall Assessment: Negative, BI-RAD 1 Management: Screening Mammogram of both breasts in [address] [facility] will attempt to contact patient to return for supplemental views and ultrasound if indicated. Patient should continue monthly self-breast exams. A clinical breast exam by your physician is recommended on an annual basis. This exam should not preclude additional follow-up of suspicious palpable abnormalities. Note on Cindi scores and lifetime risk: 1. A Cindi score greater than 3% is considered moderate risk. If this is the case, consider specialist referral to assess eligibility for a risk reducing agent. 2. If overall lifetime risk for the development of breast cancer is 20% or higher, the patient may qualify for future screening with alternating mammogram and breast MRI. [facility], , 10/07/2024 3:41 PM. Electronically signed and approved by: Luis Antonio DO
== END | disposition home or self-care (01) ==
LOC: RADMAMWWP 14:21
PROVIDERS: ATTEND Internal Medicine Geriatric Medicine
DX: Z12.31 Encounter for screening mammogram for malignant neoplasm of breast (principal); R92.333 Mammographic heterogeneous density, bilateral breasts; Z78.0 Asymptomatic menopausal state
CPT/HCPCS: 77063; 77067